=== PATIENT | male | born 1965 | race Caucasian/White ===

== ENCOUNTER 2017-02-06 11:21 | Emergency (ER) | payer OTHER ==
[2017-02-06] MEDS ORDERED: DIPHTH,PERTUSS(ACELL),TET VAC 0.5 ML VIAL IM ONE ×2 (11:32→11:33)
--- NOTE | 2017-02-06 12:06 | ERNOTE ---
Medical Problem HPI - Narrative Date of Service: 02/06/17 - General Chief Complaint: Laceration Time Seen by Provider: 02/06/17 11:35 Source: patient, RN notes reviewed Exam Limitations: no limitations - Immun/Allergies/Home Medications Immunizations: IMMUNIZATION HX Immunizations Up to Date No History of Influenza Vaccine No Hx Pneumococcal Vaccination No Allergies/Adverse Reactions: Allergies No Known Allergies Allergy (Unverified 02/06/17 11:28) Home Medications: HOME MEDICATIONS Metoprolol Succinate [Toprol Xl] 100 mg PO DAILY 02/06/17 [Last Taken Unknown] - History of Present History Narrative: 51 year old male ambulatory to the ED for a laceration to his left 5th finger. He pinched the proximal palmar surface of the finger in a hinge on his tractor. He denies any joint pain. The bleeding is well controlled on arrival. Date (Duration): 02/06/17 Time (Timing): 10:45 Review of Systems - Review of Systems Constitutional: Absent: recent illness, fever, malaise EYE: Present: no symptoms reported ENT: Present: no symptoms reported Respiratory: Present: no symptoms reported Cardiology: Present: no symptoms reported Gastrointestinal/Abdominal: Present: no symptoms reported Genitourinary: Present: no symptoms reported Musculoskeletal: Absent: joint pain, joint swelling Skin: Absent: rash, lesions, lumps, change in color Neurological: Absent: weakness, numbness, tingling Endocrine: Present: no symptoms reported Hematologic/Lymphatic: Present: no symptoms reported Psych: Present: no symptoms reported - Patient's Past Medical History Patient History - Medical: No pertinent hx Patient History - Cardiac/Respiratory: Hypertension Patient History - Cancer: No Hx of Cancer Patient History - Surgical Procedures: Noncontributory Patient History - Other: None - Social History Living Situations: spouse Psych History: No pertinent hx Smoking Status: Never smoker Alcohol Use: none Drug Use: none - Immunizations Immunizations Up to Date: No Hx Pneumococcal Vaccination: No History of Influenza Vaccine: No Physical Exam - Physical Exam General Appearance: Present: wd/wn, alert, no apparent distress Respiratory: Present: no respiratory distress, no accessory muscle use Cardiovascular/Chest: Present: normal peripheral pulses Extremity Exam: Present: normal range of motion, no edema, other - laceration to left proximal 5th finger on palmar surface. Absent: bony tenderness, joint swelling Neurological Exam: Present: alert, oriented, normal mood/affect, no motor/ sensory deficits Skin Exam: Present: normal color, warm/dry ED Progress - Vital Signs Patient's Vital Signs:: I have reviewed the patient's vital signs. Vital Signs: Vital Signs 02/06/17 11:25 Temperature 36.0 C L Pulse Rate 64 Respiratory 16 Rate Blood Pressure 163/98 O2 Sat by Pulse 98 Oximetry - Progress/Reassessment Chief Complaint: Laceration Progress:: Improved Procedures Left Proximal Volar Finger 5th Digit Anesthesia: 2% Lidocaine I & D Prep: betadine prep, sterile drapes applied Length of Repair/Wound (cm): 2.5 Wound's Depth/Shape: into subcutaneous, irregular Wound Explored: clean, to base, in bloodless field, no foreign body Wound Intervention: irrigated w/saline Distal NVT: neuro/vasc intact, no tendon injury Wound Repaired With: sutures Suture Size/Type: 4-0, nylon Number of Sutures: 7 Wound Dressing: sterile dressing applied Complications: Pt roman procedure well Departure Clinical Impression: Finger laceration Qualifiers: Encounter type: initial encounter Finger: little finger Damage to nail status: without damage Foreign body presence: without foreign body Laterality: left Qualified Code(s): S61.217A - Laceration without foreign body of left little finger without damage to nail, initial encounter - Departure Disposition: Home Follow Up Needed Condition: Good Instructions: Sutured Wound Care, Eoak-hv-[id number] Additional Instructions: Keep dressing dry and in place for 24 hours You can then wash wound gently with soap and water, but do not soak in water for prolonged periods of time Apply antibiotic ointment and bandage as needed Have sutures removed in 7 days Referrals: Barbara Murray MD [Primary Care Provider] -
[2017-02-06 12:17] VITALS: BP 141/95
== END 2017-02-06 12:17 | disposition home or self-care (01) ==
LOC: ER 11:21
PROC: 0JQK0ZZ Repair Left Hand Subcutaneous Tissue and Fascia, Open Approach (ICD-10-PCS; principal; 2017-02-06)
DX: S61.217A Laceration without foreign body of left little finger without damage to nail, initial encounter (principal); X58.XXXA Exposure to other specified factors, initial encounter; Y93.H9 Activity, other involving exterior property and land maintenance, building and construction; Y92.9 Unspecified place or not applicable; I10 Essential (primary) hypertension; Z23 Encounter for immunization